=== PATIENT | female | born 1995 | race Two or more races ===

== ENCOUNTER → 2024-09-21 | Outpatient (CLI) | payer BC ==
[2024-09-21 14:13] LABS: Basophils # (auto) 0 10 ^3/uL (0-0.2); Basophils % (auto) 0.3 % (0.0-2.0); Eosinophils # (auto) 0.1 10 ^3/uL (0-0.8); Eosinophils % (auto) 1.2 % (0.0-7.0); Hematocrit 46.9 % (36.0-46.0); Hemoglobin 16.2 g/dL (12.2-16.2); Lymphocytes # (auto) 2.2 10 ^3/uL (0.4-5.4); Lymphocytes % (auto) 24.9 % (10.0-50.0); Mean Corpuscular Hemoglobin 28.9 pg (28.0-32.0); Mean Corpuscular Hgb Conc. 34.5 g/dL (32.0-36.0); Mean Corpuscular Volume 83.7 fL (80.0-100.0); Monocytes # (auto) 0.4 10 ^3/uL (0-1.3); Monocytes % (auto) 4.9 % (0.0-12.0); Neutrophils # (auto) 6.1 10 ^3/uL (1.6-8.6); Neutrophils % (auto) 68.7 % (37.0-80.0); Nucleated Red Blood Cells % 0.2 %; Platelet Count (auto) 299 10^3/uL (140-450); Red Blood Cells 5.61 10^6/uL (4.0-5.20); Red Cell Distribution Width 13.6 % (11.8-14.3); White Blood Cell 8.9 10^3/uL (4.4-10.8)
[2024-09-21 14:41] LABS: Alanine Aminotransferase 33 U/L (7-40); Albumin 4.7 g/dL (3.2-4.8); Alkaline Phosphatase 97 U/L (46-116); Anion Gap 5 (5-15); Aspartate Aminotransferase 23 U/L (13-40); BUN/Creatinine Ratio 14.5 (10.0-20.0); Blood Urea Nitrogen 11 mg/dL (9-23); Calcium 10.3 mg/dL (8.7-10.4); Carbon Dioxide 30 mmol/L (20-31); Chloride 104 mmol/L (98-107); Glucose 93 mg/dL (74-106); Potassium 4.2 mmol/L (3.5-5.1); Sodium 139 mmol/L (136-145)
[2024-09-21 14:42] LABS: Bilirubin, Total 0.9 mg/dL (0.2-1.0); Total Protein 7.3 g/dL (5.7-8.2)
[2024-09-21 14:44] LABS: Beta HCG, Quantitative < 0.0 mIU/mL (1.5-4.2)
== END | disposition home or self-care (01) ==
LOC: LAB 13:44
PROVIDERS: ATTEND Obstetrics & Gynecology
DX: Z01.419 Encounter for gynecological examination (general) (routine) without abnormal findings (principal); Z87.42 Personal history of other diseases of the female genital tract
CPT/HCPCS: 36415; 80053; 83036; 84443; 84702; 85025

== ENCOUNTER → 2024-11-30 | Outpatient (CLI) | payer BC ==
[2024-11-30 15:13] LABS: Basophils # (auto) 0 10 ^3/uL (0-0.2); Basophils % (auto) 0.5 % (0.0-2.0); Eosinophils # (auto) 0.1 10 ^3/uL (0-0.8); Eosinophils % (auto) 1.2 % (0.0-7.0); Hematocrit 47.9 % (36.0-46.0); Lymphocytes # (auto) 1.7 10 ^3/uL (0.4-5.4); Lymphocytes % (auto) 26.6 % (10.0-50.0); Mean Corpuscular Hgb Conc. 33.4 g/dL (32.0-36.0); Mean Corpuscular Volume 83.7 fL (80.0-100.0); Monocytes # (auto) 0.3 10 ^3/uL (0-1.3); Monocytes % (auto) 4.3 % (0.0-12.0); Neutrophils # (auto) 4.2 10 ^3/uL (1.6-8.6); Neutrophils % (auto) 67.4 % (37.0-80.0); Nucleated Red Blood Cells % 0.1 %; Platelet Count (auto) 280 10^3/uL (140-450); Red Blood Cells 5.72 10^6/uL (4.0-5.20); Red Cell Distribution Width 13.5 % (11.8-14.3); White Blood Cell 6.2 10^3/uL (4.4-10.8)
[2024-11-30 16:04] LABS: Alanine Aminotransferase 31 U/L (7-40); Alkaline Phosphatase 105 U/L (46-116); Anion Gap 7 (5-15); Aspartate Aminotransferase 27 U/L (13-40); BUN/Creatinine Ratio 11.7 (10.0-20.0); Blood Urea Nitrogen 9 mg/dL (9-23); Calcium 9.9 mg/dL (8.7-10.4); Carbon Dioxide 28 mmol/L (20-31); Chloride 103 mmol/L (98-107); Glucose 87 mg/dL (74-106); Potassium 3.7 mmol/L (3.5-5.1); Sodium 138 mmol/L (136-145)
[2024-11-30 16:05] LABS: Total Protein 7.3 g/dL (5.7-8.2)
[2024-11-30 16:08] LABS: Free T4 (Free Thyroxine) 1.04 ng/dL (0.89-1.76); T3 Total 1.2 ng/mL (0.60-1.81); Thyroid Stimulating Hormone 1.66 uIU/mL (0.55-4.78)
[2024-11-30 16:09] LABS: Albumin 4.9 g/dL (3.2-4.8); Beta HCG, Quantitative 1.2 mIU/mL (1.5-4.2); Bilirubin, Total 1.2 mg/dL (0.2-1.0); Follicle Stimulating Hormone 5.91 IU/L (SEE BELOW); Leuteinizing Hormone 1.8 IU/L; Prolactin 21.39 ng/mL (2.8-29.2)
== END | disposition home or self-care (01) ==
LOC: LAB 14:27
PROVIDERS: ATTEND Obstetrics & Gynecology
DX: E28.2 Polycystic ovarian syndrome (principal)
CPT/HCPCS: 36415; 80053; 82626; 82670; 83001; 83002; 83036; 84146; 84402; 84403; 84439; 84443; 84480; 84702; 85025

== ENCOUNTER 2025-08-31 10:15 | Outpatient (CLI) | payer BC ==
[2025-08-31 10:37] LABS: Hematocrit 43.2 % (36.0-46.0); Hemoglobin 14.8 g/dL (12.2-16.2); Mean Corpuscular Hemoglobin 29.0 pg (28.0-32.0); Mean Corpuscular Volume 84.3 fL (80.0-100.0); Nucleated Red Blood Cells % 0.0 %
[2025-08-31 11:06] LABS: Thyroid Stimulating Hormone 2.77 uIU/mL (0.55-4.78)
[2025-09-02 06:06] LABS: Chlamydia Trachomatis, NAA Negative (Negative); Neisseria gonorrhoeae, NAA Negative (Negative)
== END 2025-08-31 17:00 | disposition home or self-care (01) ==
LOC: LAB 10:15
PROVIDERS: ATTEND Obstetrics & Gynecology
DX: O23.40 Unspecified infection of urinary tract in pregnancy, unspecified trimester (principal); N39.0 Urinary tract infection, site not specified; Z11.3 Encounter for screening for infections with a predominantly sexual mode of transmission; Z31.430 Encounter of female for testing for genetic disease carrier status for procreative management; Z20.09 Contact with and (suspected) exposure to other intestinal infectious diseases; Z3A.00 Weeks of gestation of pregnancy not specified
CPT/HCPCS: 36415; 83036; 84144; 84443; 84702; 85025; 86703; 86762; 86780; 86787; 86850; 86900; 86901; 87086; 87340

== ENCOUNTER 2025-09-25 08:04 | Observation (INO) | payer BC ==
[~2025-09-25] VITALS: Ht 160 cm; Wt 96.6 kg
--- NOTE | 2025-09-25 09:33 | DVH ---
EXAM DESCRIPTION: LIMITED TRANSABDOMINAL OBSTETRICAL ULTRASOUND CLINICAL HISTORY: PHILIPP check COMPARISON: None. TECHNIQUE: Limited obstretical ultrasound was performed for the findings listed below. FINDINGS: No amniotic fluid visualized. Possible fluid in the endocervical canal. The cervix measures 3.2 cm. The presentation is breech. The placenta is anterior, without evidence of previa. heart rate 165 beats per minute IMPRESSION: No amniotic fluid visualized and there is possible fluid in the endocervical canal, concerning for rupture of membranes.
--- NOTE | 2025-09-26 15:44 | DVHDS2 ---
Discharge Summary Date of Admission Sep 25, 2025 at 08:04 Date of Discharge: Sep 25, 2025 Admitting Diagnosis Severe oligohydramnios 13 weeks 4/7 days Wounds: None Labs/Diagnostic Data: None Brief Hx & Hospital Course: Patient was brought in for Dr. Sheets of which we discussed her ominous prognosis. She was given an option for DNA and/or induction with Cytotec. Patient would like to go to [place] for 2nd opinion. She has no signs or symptoms of spontaneous rupture of membranes fever or any type of infection heart tones reassuring. Understands the risks associated with pulmonary hypoplasia and immaturity of the lungs without fluid. She understands if she were to go to vital delivery even with heart tones the potential morbidity and mortality of the baby severely high secondary to the baby's inability to allow the lungs to mature. Even if she was to maintain the to a viable gestation; She understands that there is a high-risk the baby could after delivery secondary to hypo plegia of the lungs; she understands these risks and at this point would like to proceed with everything possible to maintain the . Consults/Reason for consult None Operations or Procedures [facility] Condition at Discharge: Good Final Diagnosis/Problems List 1 3 week intrauterine severe oligohydramnios poor prognosis Discharge Disposition: Home Discharge Instruct/Medications Diet: Regular Activity: Light activity Activity comment: From precautions vaginal bleeding precautions fever precautions; agrees or sexually telling us that she will go to To [place] for 2nd opinion Follow Up/Referral: To go to [place] for 2nd opinion Medications: None Discharge Statement: "Patient was advised to return to the ER or call 911 if any headaches, dizziness, shortness of breath, chest pain, abdominal pain, bleeding, fevers, or worsening of medical condition. Patient was counseled about treatment plan, medications, possible side effects, patientverbalized understanding. All questions were answered to the best of my ability. This discharge took greater then 30 minutes in planning, reviewing documentation , counseling the patient, and discussing with other team members." ASSESSMENT ASSESSMENT Hospital Course Routine week severe anemia 14 weeks severe oligohydramnios poor prognosis Assessment Fourteen weeks intrauterine severe oligohydramnios poor prognosis Visit Coding OBGYN Date of Service: Sep 25, 2025 Billing Provider: [facility] Common Visit Codes: 27743-[id number] INP/OBS CARE(HIGH), 33959-IMS/OBS SAME DATE (LOW), 54424-BXZ/OBS SAME DATE (MOD) [facility] Procedure Codes: 13164-57- NON-STRESS TEST JOHNATHON DIGGS DO Sep 26, 2025 15:44
== END 2025-09-25 10:15 | disposition left against medical advice (07) ==
LOC: LDRP 08:04
PROVIDERS: ADMIT Obstetrics & Gynecology; ATTEND Obstetrics & Gynecology
DX: O99.011 Anemia complicating pregnancy, first trimester (principal); D64.9 Anemia, unspecified; O41.01X0 Oligohydramnios, first trimester, not applicable or unspecified; Z3A.13 13 weeks gestation of pregnancy; Z98.890 Other specified postprocedural states
CPT/HCPCS: 76815; 81002; 94760; A4649; G0378